=== PATIENT | male | born 1995 | race Caucasian/White ===

== ENCOUNTER 2017-01-13 08:02 | Emergency (ER) | payer MEDICAID, OTHER ==
[2017-01-13 08:14] VITALS: TEMP 96.3; O2SAT 100
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
[2017-01-13 08:58] VITALS: BP 124/68
== END 2017-01-13 08:56 | disposition home or self-care (01) ==
LOC: ER 08:02
DX: Z04.1 Encounter for examination and observation following transport accident (principal); V43.53XA Car driver injured in collision with pick-up truck in traffic accident, initial encounter; Y92.481 Parking lot as the place of occurrence of the external cause